=== PATIENT | male | born 1965 | race Caucasian/White ===

== ENCOUNTER 2018-03-27 19:37 | Emergency (ER) | payer OTHER, MEDICAID ==
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
[2018-03-27 20:09] LABS: PLATELET COUNT 197 10^3/uL (150-400)
[2018-03-27 20:40] VITALS: BP 117/74
== END 2018-03-27 20:59 ==
LOC: EDUNIT# → EEVIPCON 19:37
DX: R45.851 Suicidal ideations (principal)
CPT/HCPCS: 80305; G0480